=== PATIENT | female | born 1970 | race Caucasian/White ===

== ENCOUNTER 2018-06-01 10:29 | Inpatient (IN) | payer BC ==
--- NOTE | 2018-06-01 10:48 | EDPHY ---
H & P Stated Complaint: Mid upper abd pain x1 week/cramping.,denies n/v/d. Time Seen by Provider: 06/01/18 10:39 HPI/ROS: CHIEF COMPLAINT: Right upper quadrant pain HISTORY OF PRESENT ILLNESS: Patient is a 47-year-old female who comes to the emergency department complaining of right upper quadrant pain that has been constant for the last week. She states that she was exercising when it began. She states that she has not had an appetite and has not had much to eat. No nausea or vomiting. No diarrhea. No difficulty with bowel movements. She is passing gas. She states that this is primarily pain. She did have a low temperature of 99-100 degrees. No urinary symptoms. No vaginal symptoms. No back pain. No chest pain or shortness of breath. No shoulder pain. No trauma. Severity: Moderate Modifying factors: None REVIEW OF SYSTEMS: Constitutional: denies: chills, fever, recent illness, recent injury EENTM: denies: blurred vision, double vision, nose congestion Respiratory: denies: cough, shortness of breath Cardiac: denies: chest pain, irregular heart rate, lightheadedness, palpitations Gastrointestinal/Abdominal: See HPI Genitourinary: denies: dysuria, frequency, hematuria, pain Musculoskeletal: denies: joint pain, muscle pain Skin: denies: lesions, rash, jaundice, bruising Neurological: denies: headache, numbness, paresthesia, tingling, dizziness, weakness Hematologic/Lymphatic: denies: blood clots, easy bleeding, easy bruising Immunologic/allergic: denies: HIV/AIDS, transplant 10 systems reviewed and negative except as noted EXAM: GENERAL: Well-appearing, well-nourished and in no acute distress. HEAD: Atraumatic, normocephalic. EYES: Pupils equal round and reactive to light, extraocular movements intact, sclera anicteric, conjunctiva are normal. ENT: TMs normal, nares patent, oropharynx clear without exudates. Moist mucous membranes. NECK: Normal range of motion, supple without lymphadenopathy or JVD. LUNGS: Breath sounds clear to auscultation bilaterally and equal. No wheezes rales or rhonchi. HEART: Regular rate and rhythm without murmurs, rubs or gallops. ABDOMEN: Right upper quadrant pain, Soft, nontender, normoactive bowel sounds. No guarding, no rebound. No masses appreciated. Very slight Davis sign BACK: No CVA tenderness, no spinal tenderness, step-offs or deformities EXTREMITIES: Normal range of motion, no pitting or edema. No clubbing or cyanosis. NEUROLOGICAL: Cranial nerves II through XII grossly intact. Normal speech, normal gait. 5/5 strength, normal movement in all extremities, normal sensation , normal reflexes PSYCH: Normal mood, normal affect. SKIN: Warm, dry, normal turgor, no visible rashes or lesions. Source: Patient Exam Limitations: No limitations - Personal History LMP (Females 10-55): 8-14 Days Ago Current Tetanus Diphtheria and Acellular Pertussis (TDAP): Yes Tetanus Vaccine Date: 2015 - Medical/Surgical History Hx Asthma: No Hx Chronic Respiratory Disease: No Hx Diabetes: No Hx Cardiac Disease: No Hx Renal Disease: No Hx Cirrhosis: No Hx Alcoholism: No Hx HIV/AIDS: No Hx Splenectomy or Spleen Trauma: No Other PMH: Med Hx-skin CA to face. Surg-bunions - Family History Significant Family History: No pertinent family hx - Social History Smoking Status: Never smoked Alcohol Use: None Constitutional: Initial Vital Signs Temperature (C) 36.8 C 06/01/18 10:33 Heart Rate 82 06/01/18 10:33 Respiratory Rate 16 06/01/18 10:33 Blood Pressure 116/69 06/01/18 10:33 O2 Sat (%) 100 06/01/18 10:33 O2 Delivery Mode Room Air Allergies/Adverse Reactions: No Known Allergies Allergy (Verified 06/01/18 10:33) Home Medications: Medication Instructions Recorded Ibuprofen [Motrin (*)] 400 mg PO Q6H PRN 06/01/18 Medical Decision Making - Diagnostics EKG Interpretation: An EKG obtained and was read and documented in trace view. Please see trace view for full reading and report. Sinus rhythm, no acute ischemic changes Imaging: Discussed imaging studies w/ call or contact centre manager Radiologist ED Course/Re-evaluation: We discussed the ultrasound urine and blood results thus far. She is not match any any clear clinical picture for gallbladder disease or kidney stone or urinary tract infection. On repeat abdominal examination she now is more tender in her right lower quadrant. I will add a CT scan to evaluate her appendix. We discussed the CT results. I have paged surgery. the patient does have a slight temperature of 100.2 degrees. 2:13 p.m. discussed the case with Dr. Godwin Loco who will admit and evaluate. Differential Diagnosis: Partial list of the Differential diagnosis considered include but were not limited to; appendicitis, ovarian cyst, ovarian torsion, biliary disease and although unlikely based on the history and physical exam, I also considered urinary tract infection, . - Data Points Microbiology Results: MICROBIOLOGY 06/01/18 11:05 Unspecified Urine Culture - Preliminary Strep Agalactiae Group B [place] Types Medications Given: Acetaminophen (Tylenol) 650 mg PO Q6HRS PRN PRN Reason: Pain, Mild/Fever, Can Take PO Stop: 11/28/18 16:30 Last Admin: 06/02/18 17:32 Dose: 650 mg Enoxaparin Sodium (Lovenox) 40 mg SC DAILY [facility] Stop: 11/29/18 08:59 Last Admin: 06/02/18 10:15 Dose: 40 mg Hydromorphone HCl (Dilaudid) 0.4 mg IVP Q2HRS PRN PRN Reason: Pain, Severe Unable to Take PO Stop: 06/11/18 17:32 Last Admin: 06/02/18 04:24 Dose: 0.4 mg Ampicillin Sodium/Sulbactam (Sodium 3 gm/ Sodium Chloride) 100 mls @ 200 mls/ hr IV Q6HRS [facility] PRN Reason: Protocol Stop: 07/02/18 18:29 Last Admin: 06/02/18 18:36 Dose: 100 mls Ibuprofen (Motrin) 600 mg PO Q8HRS [facility] Stop: 11/28/18 21:59 Last Admin: 06/02/18 13:14 Dose: 600 mg Metoclopramide HCl (Reglan Injection) 10 mg IVP Q4HRS PRN PRN Reason: Nausea/Vomiting, Can't Take PO Stop: 11/28/18 19:22 Last Admin: 06/02/18 21:21 Dose: 10 mg Oxycodone/Acetaminophen (Percocet 5/325) 1 tab PO Q4HRS PRN PRN Reason: Pain, Severe Able to Take PO Stop: 06/11/18 19:25 Last Admin: 06/02/18 17:32 Dose: 1 tab Discontinued Medications Bupivacaine HCl (Sensorcaine 0.25% Sdv) Confirm Administered Dose 30 ml .ROUTE .STK-MED ONE Stop: 06/01/18 17:45 Last Admin: 06/01/18 18:06 Dose: 30 ml Hydromorphone HCl (Dilaudid) 0.1 - 0.4 mg IVP Q10M PRN PRN Reason: PACU, PAIN Stop: 06/01/18 20:09 Last Admin: 06/01/18 19:44 Dose: 0.4 mg Sodium Chloride (Ns) 1,000 mls @ 0 mls/hr IV EDNOW ONE; Wide Open PRN Reason: Protocol Stop: 06/01/18 12:35 Last Admin: 06/01/18 12:34 Dose: 1,000 mls Ceftriaxone Sodium/Dextrose (Rocephin 1 Gm (Premix)) 50 mls @ 100 mls/hr IV EDNOW ONE PRN Reason: Protocol Stop: 06/01/18 14:28 Last Admin: 06/01/18 14:26 Dose: 50 mls Metronidazole/Sodium Chloride (Flagyl 500 Mg (Premix)) 100 mls @ 100 mls/hr IV EDNOW ONE PRN Reason: Protocol Stop: 06/01/18 14:58 Last Admin: 06/01/18 14:58 Dose: 100 mls Lactated Ringer's (Lr) 1,000 mls @ 125 mls/hr IV CONT [facility] Stop: 11/28/18 16:59 Last Admin: 06/02/18 04:03 Dose: 1,000 mls Ceftriaxone Sodium/Dextrose (Rocephin 1 Gm (Premix)) 50 mls @ 100 mls/hr IV DAILY [facility] PRN Reason: Protocol Stop: 07/02/18 08:59 Last Admin: 06/02/18 10:14 Dose: 50 mls Metronidazole/Sodium Chloride (Flagyl 500 Mg (Premix)) 100 mls @ 100 mls/hr IV Q8HRS [facility] PRN Reason: Protocol Stop: 07/02/18 13:59 Last Admin: 06/02/18 13:15 Dose: 100 mls Ketorolac Tromethamine (Toradol) 30 mg IVP EDNOW ONE Stop: 06/01/18 12:17 Last Admin: 06/01/18 12:33 Dose: 30 mg Ondansetron HCl (Zofran) 4 mg IVP Q4HRS PRN PRN Reason: *Nausea &/or Vomiting Stop: 06/02/18 19:22 Last Admin: 06/01/18 19:59 Dose: 4 mg Promethazine HCl (Phenergan) 6.25 - 12.5 mg IVP Q5M PRN PRN Reason: PACUNausea/Vomiting, Unable PO Stop: 06/01/18 20:09 Last Admin: 06/01/18 20:02 Dose: 6.25 mg Point of Care Test Results: CBC CBC Collection Date 06/01/18 CBC Collection Time 10:55 WBC 11.15 RBC 4.28 HGB 13.2 HCT 40.1 PLT 227 Neut # 9.05 Neut 81.1 LYMPH # 0.70 LYMPH 6.3 MCV 93.7 Chemistry 06/01/18 11:01 POC Sodium 139 mEq/L mEq/L (135-145) POC Potassium 3.6 mEq/L mEq/L (3.3-5.0) POC Chloride 107.0 mEq/L mEq/L (97-110) POC Total CO2 24 mEq/L mEq/L (22-31) POC BUN 13 mg/dL mg/dL (7-23) POC Creatinine 1.0 mg/dL mg/dL (0.6-1.0) POC Glucose 96 mg/dL mg/dL (70-100) POC Calcium 9.6 mg/dL mg/dL (8.5-10.4) POC Total Bilirubin 0.7 mg/dL mg/dL (0.1-1.4) POC AST 21 IU/L IU/L (14-46) POC ALT 14 IU/L IU/L (9-52) POC Alk Phosphatase 57 IU/L IU/L (38-126) POC Total Protein 7.9 g/dL g/dL (6.3-8.2) POC Albumin 3.9 g/dL g/dL (3.5-5.0) Urine Collection Date 06/01/18 Collection Time 10:55 HCG Results Negative Urine Dip Collection Date 06/01/18 Collection Time 10:55 Specific [place] (1.002-1.030) 1.020 PH (5.0-7.5) 7.0 Leukocytes (Negative) 1+ Nitrites (Negative) Negative Protein (Negative) 1+ Glucose (Negative) Negative Ketones (Negative) 3+ Urobilnogen (0.2-1.0 EU) 1.0 Bilirubin (Negative) Test Not Performed Blood (Negative) Negative Departure - Departure Disposition: [facility] Inpatient Acute Clinical Impression: Abdominal pain Qualifiers: Abdominal location: unspecified location Qualified Code(s): R10.9 - Unspecified abdominal pain Condition: Fair
--- NOTE | 2018-06-01 11:10 | CPEKG ---
Test Reason : OPEN Blood Pressure : / mmHG Vent. Rate : 083 BPM Atrial Rate : 082 BPM P-R Int : 164 ms QRS Dur : 083 ms QT Int : 362 ms P-R-T Axes : 072 043 033 degrees QTc Int : 426 ms Sinus rhythm Confirmed by Serafin Chopra ([id number]) on 06/01/2018 11:10:34 AM Referred By: Serafin Chopra Confirmed By:Serafin Chopra
[2018-06-01] MEDS ORDERED: KETOROLAC 30 MG/1 ML SDV IVP ONE (12:16)
[2018-06-01] MEDS ORDERED: NS 1,000 ML IV ONE (12:34)
[2018-06-01] MEDS ORDERED: IOPAMIDOL (ISOVUE-300) 100 ML BTL ONE (12:57)
--- NOTE | 2018-06-01 16:33 | PDGENHP ---
History and Physical - Chief Complaint abd pain - History of Present Illness History Information - Allergies/Home Medication List Allergies/Adverse Reactions: No Known Allergies Allergy (Verified 06/01/18 10:33) Home Medications: NK [No Known Home Meds] 01/10/13 [Last Taken Unknown] I have personally reviewed and updated: family history, medical history, social history, surgical history - Past Medical History no pertinent PMH - Surgical History Additional surgical history: bunionectomy - Family History Positive for: non-pertinent - Social History Smoking Status: Never smoked Alcohol Use: None Drug Use: None Additional social history: with 3 children/ out of town returning tonight Review of Systems Review of Systems: Constitutional: Reports: chills, fever Gastrointestinal: Reports: abdominal pain, abdominal distention, nausea Genitourinary: Reports: no symptoms Muscolosketal: Reports: no symptoms Physical Exam Physical Exam: Temp Pulse Resp BP Pulse Ox 37.2 C 84 16 124/67 H 97 06/01/18 16:09 06/01/18 16:09 06/01/18 16:09 06/01/18 16:09 06/01/18 16:09 Constitutional: uncomfortable Eyes: anicteric sclera Cardiovascular: regular rate and rhythym, systolic murmur (1-2/6 GIUSEPPE), tachycardia Respiratory: no respiratory distress, no rales or rhonchi, clear to auscultation Gastrointestinal: tenderness (RLQ with guarding, + Rovsing's, ) Genitourinary: no bladder fullness Neurologic: AAOx3 Psychiatric: interacting appropriately Lab Data & Imaging Review POC Sodium 139 mEq/L (135-145) 06/01/18 11:01 POC Potassium 3.6 mEq/L (3.3-5.0) 06/01/18 11:01 POC Chloride 107.0 mEq/L (97-110) 06/01/18 11:01 POC Total CO2 24 mEq/L (22-31) 06/01/18 11:01 POC BUN 13 mg/dL (7-23) 06/01/18 11:01 POC Creatinine 1.0 mg/dL (0.6-1.0) 06/01/18 11:01 POC Glucose 96 mg/dL (70-100) 06/01/18 11:01 POC Calcium 9.6 mg/dL (8.5-10.4) 06/01/18 11:01 POC Total Bilirubin 0.7 mg/dL (0.1-1.4) 06/01/18 11:01 POC AST 21 IU/L (14-46) 06/01/18 11:01 POC ALT 14 IU/L (9-52) 06/01/18 11:01 POC Alk Phosphatase 57 IU/L (38-126) 06/01/18 11:01 POC Total Protein 7.9 g/dL (6.3-8.2) 06/01/18 11:01 POC Albumin 3.9 g/dL (3.5-5.0) 06/01/18 11:01 Urine Color YELLOW 06/01/18 11:05 Urine Appearance HAZY 06/01/18 11:05 Urine pH 6.0 (5.0-7.5) 06/01/18 11:05 Ur Specific [place] 1.028 (1.002-1.030) 06/01/18 11:05 Urine Protein 1+ (NEGATIVE) H 06/01/18 11:05 Urine Ketones 1+ (NEGATIVE) H 06/01/18 11:05 Urine Blood NEGATIVE (NEGATIVE) 06/01/18 11:05 Urine Nitrate NEGATIVE (NEGATIVE) 06/01/18 11:05 Urine Bilirubin NEGATIVE (NEGATIVE) 06/01/18 11:05 Urine Urobilinogen NEGATIVE EU (0.2-1.0) 06/01/18 11:05 Ur Leukocyte Esterase 2+ (NEGATIVE) H 06/01/18 11:05 Urine RBC 1-3 /hpf (0-3) 06/01/18 11:05 Urine WBC 10-15 /hpf (0-3) H 06/01/18 11:05 Ur Epithelial Cells 2+ /lpf (NONE-1+) H 06/01/18 11:05 Urine Bacteria TRACE /hpf (NONE SEEN) H 06/01/18 11:05 Urine Mucus 1+ /lpf (NONE-1+) 06/01/18 11:05 Urine Glucose NEGATIVE (NEGATIVE) 06/01/18 11:05 Visualized and Interpreted imaging results: Yes Interpretation: ruptured appendix/4 cm abscess Assessment & Plan Assessment: Abdominal pain (Acute)/ruptured appendicitis with abscess Plan: We discussed immediate surgery (open appendectomy with drainage abscess) vs. perc drain and delayed appendectomy. She is in favor of going directly to surgery. We discussed risks, benefits and expected recovery. Informed consent was obtained. Josephine Loco MD, FACS
[2018-06-01] MEDS: LR 1,000 ML IV SCH (16:45)
[2018-06-01] MEDS ORDERED: BUPIVACAINE 0.25% 30 ML SDV ONE (17:44)
[2018-06-01] MEDS: HYDROmorphONE/DILAUDID 1 MG/ML INJ IVP PRN ×2 (17:46→22:42)
--- NOTE | 2018-06-01 18:01 | PDANEPAE ---
ANE History of Present Illness appendicitis ANE Past Medical History - Cardiovascular History Hx Hypertension: No Hx Arrhythmias: No Hx Chest Pain: No Hx Coronary Artery / Peripheral Vascular Disease: No Hx CHF / Valvular Disease: No Hx Palpitations: No - Pulmonary History Hx COPD: No Hx Asthma/Reactive Airway Disease: No Hx Recent Upper Respiratory Infection: No Hx Oxygen in Use at Home: No Hx Sleep Apnea: No Sleep Apnea Screening Result - Last Documented: Negative - Endocrine History Hx Diabetes: No Hypothyroid: No Hyperthyroid: No Obesity: no - Renal History Hx Renal Disorders: No - Liver History Hx Hepatic Disorders: No - Neurological & Psychiatric Hx Hx Neurological and Psychiatric Disorders: No - Cancer History Hx Cancer: No - Congenital Disorder History Hx Congenital Disorders: No - GI History Hx Gastrointestinal Disorders: Yes Gastrointestinal History Comment: acute appendicitis - Chronic Pain History Chronic Pain: No - Surgical History Prior Surgeries: bunionectomy*2. tonsillectomy as child ANE Review of Systems Review of systems is: negative Review of Systems: - Exercise capacity METS (RN): 4 METS ANE Patient History - Allergies Allergies/Adverse Reactions: No Known Allergies Allergy (Verified 06/01/18 10:33) - Home Medications Home medications: home medication list seen and reviewed Home Medications: Ibuprofen [Motrin (*)] 400 mg PO Q6H PRN 06/01/18 [Last Taken 06/01/18 05:30] - NPO status NPO Status: no food or drink >8 hours NPO Since - Liquids (Date): 06/01/18 NPO Since - Liquids (Time): 05:30 NPO Since - Solids (Date): 06/01/18 NPO Since - Solids (Time): 05:30 - Anes Hx Anes Hx: no prior problems - Smoking Hx Smoking Status: Never smoked Marijuana use: No - Alcohol Use Alcohol Use: None - Family Anes Hx Family Anes Hx: none ANE Labs/Vital Signs - Vital Signs Blood Pressure: 124/64 Heart Rate: 84 Respiratory Rate: 16 O2 Sat (%): 97 Height: 170.18 cm Weight: 65.771 kg ANE Physical Exam - Airway Neck exam: FROM Mallampati Score: Class 2 Mouth exam: normal dental/mouth exam - Pulmonary Pulmonary: no respiratory distress, clear to auscultation - Cardiovascular Cardiovascular: regular rate and rhythym, no murmur, rub, or gallop - ASA Status ASA Status: I, E ANE Anesthesia Plan Anesthesia Plan: general endotracheal anesthesia
[2018-06-01] MEDS ORDERED: fentaNYL 250 MCG/5 ML INJ ONE (18:04)
[2018-06-01] MEDS ORDERED: PROPOFOL 200 MG/20 ML VIAL ONE (18:04)
[2018-06-01] MEDS ORDERED: LIDOCAINE 2% 5 ML SDV ONE (18:04)
[2018-06-01] MEDS ORDERED: ONDANSETRON 4 MG/2 ML VIAL ONE ×2 (18:05→19:26)
[2018-06-01] MEDS ORDERED: KETOROLAC 30 MG/1 ML SDV ONE (18:05)
[2018-06-01] MEDS ORDERED: ROCURONIUM 50 MG/5 ML VIAL ONE (18:05)
[2018-06-01] MEDS ORDERED: SUCCINYLCHOLINE CHLORIDE 200 MG/10 ML SYR IVP ONE (18:05)
[2018-06-01] MEDS ORDERED: NEOSTIGMINE METHYLSULFATE 5 MG/5 ML SYR ONE (19:00)
[2018-06-01] MEDS ORDERED: NALOXONE HCL 0.4 MG/ML INJ IVP PRN (19:09)
[2018-06-01] MEDS ORDERED: PROMETHAZINE HCL 25 MG/ML INJ IVP PRN (19:09)
[2018-06-01] MEDS ORDERED: fentaNYL 100 MCG/2 ML INJ IVP PRN (19:09)
--- NOTE | 2018-06-01 19:10 | POSTANESTH ---
Post Anesthetic Evaluation Cardiovascular Status: Normal, Stable Respiratory Status: Normal, Stable Level of Consciousness/Mental Status: Can Participate in Eval Pain Control: Adequate, Prn Tx Ordered Nausea/Vomiting Control: Adequate, Prn Tx Ordered Complications Possibly Related to Anesthesia: None Noted
[2018-06-01] MEDS ORDERED: ZOLPIDEM TARTRATE 5 MG TAB PO PRN (19:23)
[2018-06-01] MEDS ORDERED: ONDANSETRON 4 MG/2 ML VIAL IVP PRN (19:23)
--- NOTE | 2018-06-01 19:23 | POSTOPPROG ---
Post Op Note Date of Operation: 06/01/18 Surgeon: Jason Loco (, FACS) Anesthesiologist: Florentin Ospina MD Anesthesia: GET(General Endotracheal) Pre-op Diagnosis: ruptured appendix Post-op Diagnosis: same Procedure: appendectomy/drainage of abscess Findings: intramural rupture of appendix with contained abscess Inf/Abcess present in the surg proc area at time of surgery?: Yes Depth: Organ Space EBL: Minimal (10ml) Drains: [place]
[2018-06-01] MEDS ORDERED: HYDROmorphONE/DILAUDID 2 MG/ML INJ ONE (19:26)
[2018-06-01] MEDS: HYDROmorphONE/DILAUDID 2 MG/ML INJ IVP PRN ×3 (19:27→19:44)
[2018-06-01] MEDS ORDERED: LR 1,000 ML IV SCH (19:30)
[2018-06-01] MEDS ORDERED: PROMETHAZINE HCL 25 MG/ML INJ ONE (20:00)
[2018-06-01] MEDS: IBUPROFEN 600 MG TAB PO SCH (23:23)
[2018-06-02] MEDS: HYDROmorphONE/DILAUDID 1 MG/ML INJ IVP PRN ×3 (00:51→04:24)
[2018-06-02] MEDS: LR 1,000 ML IV SCH (04:03)
[2018-06-02] MEDS: IBUPROFEN 600 MG TAB PO SCH ×4 (05:13→23:15)
[2018-06-02] MEDS: OXYCODONE/APAP 5/325 TAB PO PRN ×3 (05:40→17:32)
--- NOTE | 2018-06-02 07:45 | GOP ---
[f rep st] OPERATIVE REPORT DATE OF OPERATION: 06/01/2018 SURGEON: Jason Loco MD, FACS ANESTHESIA: General endotracheal. ANESTHESIOLOGIST: Florentin Ospina MD PREOPERATIVE DIAGNOSIS: Ruptured appendicitis with periappendiceal abscess. POSTOPERATIVE DIAGNOSIS: Ruptured appendicitis with periappendiceal abscess. PROCEDURE PERFORMED: Open appendectomy with drainage of periappendiceal abscess. FINDINGS: [id number] appendicitis with intramural perforation and periappendiceal abscess. ESTIMATED BLOOD LOSS: 10 cc. DESCRIPTION OF PROCEDURE: After informed consent was obtained, the patient was brought to the operating room and placed under general anesthesia. The abdomen was prepped and draped in the usual fashion. Patient was febrile and had a palpable mass in the right lower quadrant. Before proceeding, a time-out and identification of the patient was performed. 0.25% Marcaine was used to establish a regional field block. A right lower quadrant incision was made and carried through the skin and subcutaneous tissues. Hemostasis was secured with cautery. The rectus sheath and medial aspect of the external oblique fascia were incised near the juncture of the rectus and the oblique musculature. A plane of dissection was entered along the posterior rectus sheath which was incised. Peritoneal cavity was entered and explored. The appendix was markedly dilated. It was from multiple overlying loops of bowel, and the abscess was noted to be within the wall of the appendix. On CT, this measured approximately 4 cm. As we were mobilizing the appendix into the incision, the abscess drained, and a specimen was submitted for culture and sensitivity. It was an enteric smelling, greenish yellow pus that came from the abscess. The base of the appendix was markedly inflamed. The mesoappendix was very thickened. It was taken down with a Harmonic scalpel down to the base, and the base of the appendix along with a portion of the cecum were transected with a single firing of the Endo YULY 75 stapler. Staple line was oversewn with interrupted 3-0 Vicryl sutures. The cecum was returned to its anatomic position. The right paracolic gutter and pelvis were copiously irrigated with normal saline until the effluent was clear. Hemostasis appeared secure. The peritoneum was closed with continuous running 2-0 Vicryl suture. Muscle was approximated with 2-0 Vicryl suture. The fascia was closed with 0 PDS suture. Subcutaneous tissues were irrigated a 2nd time. A [place] drain was brought through the lateral aspect of the incision and secured to the skin with 3-0 nylon suture. The skin was closed with otto. Sterile dressings were applied. The patient was returned extubated to the recovery room in satisfactory condition. Needle, sponge, and instrument count was correct. COMPLICATIONS: None. /[id number]/MODL MTDD
[2018-06-02] MEDS: ACETAMINOPHEN 325 MG TAB PO PRN ×2 (07:48→17:32)
--- NOTE | 2018-06-02 08:44 | PDMN ---
Medical Necessity Medical necessity: MCG: S180 appendectomy, with abscess or peritonitis 3 days : - OP: open appendectomy with drainage of periappendiceal abscess - intramural perforation and periappendiceal abscess - damon drain placed.
--- NOTE | 2018-06-02 08:47 | SOAPPROG ---
SOAP Progress Note Assessment/Plan: Assessment:s/p appendectomy/drainage for perforated appendicitis Plan:continue Abx/check cultures increase activity and diet as tolerated 06/02/18 08:45 06/02/18 08:46 Subjective: feeling better this morning/moderate incisional pain Objective: Vital Signs Temp Pulse Resp BP Pulse Ox 37.1 C 95 18 100/53 L 94 06/02/18 08:00 06/02/18 08:00 06/02/18 08:00 06/02/18 08:00 06/02/18 08:00 Microbiology 06/01/18 18:45 Gram Stain - Final Peritoneal Fluid - Eswab 06/01/18 06/02/18 06/03/18 05:59 05:59 05:59 Intake Total 3338.6 200 Output Total 5 75 Balance 3333.6 125 - Pending Discharge Pending Discharge Within 24 Hours: No Pending Discharge Within 48 Hours: No Physical Exam - Physical Exam General Appearance: mild distress Abdomen: soft, distended, other (incision o.k./redressed/hypoactive bowel sounds ) ICD10 Worksheet Patient Problems: Problems Problem Status Onset Abdominal pain Acute
[2018-06-02] MEDS: ENOXAPARIN 40 MG/0.4 ML SYR SC SCH (10:15)
--- NOTE | 2018-06-02 10:58 | ASMTCMCOM ---
CM Note CM Note Notes: Pt is a 47 y/o female admitted for abdominal pain, ruptured appy versed torsed ovary. Pt will most likely d/c independent when medically stable. No therapies ordered at this time. CM available for changes. Plan: Independent Date Signed: 06/02/2018 10:57 AM Electronically Signed By:NAHUM Be
[2018-06-02] MEDS: AMPICILLIN/SULBACTAM 3 GM in NS 100 ML IV SCH (18:36)
[2018-06-02] MEDS: METOCLOPRAMIDE 10 MG/2 ML VIAL IVP PRN (21:21)
[2018-06-03] MEDS: OXYCODONE/APAP 5/325 TAB PO PRN (00:48)
[2018-06-03] MEDS: AMPICILLIN/SULBACTAM 3 GM in NS 100 ML IV SCH ×3 (00:49→11:46)
[2018-06-03] MEDS: IBUPROFEN 600 MG TAB PO SCH ×2 (05:51→15:04)
[2018-06-03 05:59] LABS: PLATELET COUNT 205 10^3/uL (150-400)
--- NOTE | 2018-06-03 07:23 | SOAPPROG ---
SOAP Progress Note Assessment/Plan: Assessment:s/p appendectomy/drainage for perforated appendicitis resolving post op ileus Plan: continue Unasyn, transition to oral Augmentin when ready to discharge increase activity and diet as tolerated 06/02/18 08:45 06/02/18 08:46 06/03/18 07:22 Subjective: feeling better passing flatus, no BM Objective: Vital Signs Temp Pulse Resp BP Pulse Ox 36.6 C 98 16 113/67 90 L 06/03/18 03:43 06/03/18 03:43 06/03/18 03:43 06/03/18 03:43 06/03/18 03:43 Microbiology 06/01/18 18:45 Gram Stain - Final Peritoneal Fluid - Eswab Laboratory Results 06/03/18 05:45 06/02/18 06/03/18 06/04/18 05:59 05:59 05:59 Intake Total 3338.6 850 Output Total 5 675 Balance 3333.6 175 - Pending Discharge Pending Discharge Within 24 Hours: Yes Pending Discharge Date: 06/04/18 Pending Discharge Time: 11:00 Physical Exam - Physical Exam General Appearance: no apparent distress Cardiac/Chest: regular rate, rhythm Abdomen: normal bowel sounds, soft, distended, other (RLQ incision healing with minimal damon drainage/damon removed) Pelvic Exam: deferred Rectal: deferred Skin: warm/dry Neuro/Psych: alert, normal mood/affect, oriented x 3 ICD10 Worksheet Patient Problems: Problems Problem Status Onset Abdominal pain Acute
[2018-06-03] MEDS: ENOXAPARIN 40 MG/0.4 ML SYR SC SCH (08:54)
[2018-06-03] MEDS ORDERED: SENNOSIDES/DOCUSATE SODIUM TAB PO SCH (09:00)
[2018-06-03] MEDS: METOCLOPRAMIDE 10 MG/2 ML VIAL IVP PRN (10:16)
[2018-06-03] MEDS ORDERED: ONDANSETRON 4 MG/2 ML VIAL IVP PRN (11:41)
[2018-06-03 12:19] VITALS: BP 118/72
[2018-06-03] MEDS ORDERED: ONDANSETRON DISINTEGRATING 4 MG TAB PO PRN (14:34)
[2018-06-03] MEDS ORDERED: AMOXICILLIN/CLAVULANATE POT 875/125 MG TAB PO SCH (14:45)
--- NOTE | 2018-06-03 16:26 | GDS ---
[f rep st] DISCHARGE SUMMARY DISCHARGE DIAGNOSIS: Perforated appendicitis. PROCEDURE PERFORMED: 06/01/2018, open appendectomy. HOSPITAL COURSE: For details of admission history and physical, please see dictated summary. Briefl y, the patient is a 47-year-old female, who presented with a 1-week history of abdominal pain. She w as seen at [facility] and transferred to [facility] for definitive care. CT sc an showed an abscess in the right lower quadrant that was initially indeterminate for ruptured append ix versus ovarian cyst. The patient's clinical picture of presentation was more compatible with appe ndicitis, and I recommended appendectomy after receiving intravenous ceftriaxone and Flagyl. This wa s performed on the day of admission. She was found to have a contained perforation of the appendix w ith an intramural mural abscess. Cultures were submitted and grew out Streptococcus intermedius. Sh e was switched from ceftriaxone/Flagyl to Unasyn 3 g q.6 h., which she tolerated well. She had mild nausea the day after the surgery. Her bowel function returned on the second day, and she was able to advance her diet. On the day of discharge, her incision was healing well without sign of infection. Her subcutaneous P enrose drain was removed. She was switched from Unasyn to oral Augmentin, and instructed in diet and activity advancement. DISCHARGE MEDICATIONS: Include oxycodone/Tylenol 5/325 one p.o. q.4 h. p.r.n., #20. Zofran 4 mg p.o . q.4 h. p.r.n. nausea, #10. Ibuprofen 600 mg p.o. q.6 h. p.r.n. pain, #30. Senokot S 1 p.o. twice daily, #30. Tylenol 650 mg q.4 h. p.r.n. over the counter. CONDITION AT TIME OF DISCHARGE: Improved. FOLLOWUP: Followup arranged in my office in the upcoming week for staple removal. /[id number]/MODL
== END 2018-06-03 15:52 | disposition home or self-care (01) | DRG 340 ==
LOC: CED 10:29 → OBSVTOIN 14:14 → CEDHOLD 14:14 → F3E 16:15
PROVIDERS: ADMIT Surgery; ATTEND Surgery
PROC: 0DTJ0ZZ Resection of Appendix, Open Approach (ICD-10-PCS; principal; 2018-06-01 18:00)
DX: K35.33 Acute appendicitis with perforation, localized peritonitis, and gangrene, with abscess (principal)
CPT/HCPCS: 74177-PO; 76705-PO; 80053-ER; 96361-ER; 96365; 96367-ER; 96375-ER; J0295; J0330; J0696; J1170; J1650; J1885; J2405; J2550; J2704; J2710; J2765; J3010; Q9967